=== PATIENT | male | born 1960 | race Two or more races ===

== ENCOUNTER 2019-07-26 08:27 | Emergency (ER) | payer MEDICAID ==
[~2019-07-26] VITALS: Ht 172.7 cm; Wt 86.5 kg
[2019-07-26] MEDS ORDERED: HYDROCODONE/ACETAMINOPHEN 5/325MG TABLET PO ONE (09:45)
[2019-07-26 09:52] VITALS: BP 152/86
== END 2019-07-26 10:07 | disposition home or self-care (01) ==
LOC: ER 08:27
DX: B02.9 Zoster without complications (principal)
CPT/HCPCS: 99283